=== PATIENT | male | born 2005 | race Caucasian/White ===

== ENCOUNTER 2024-05-14 23:06 | Emergency (ER) | payer OTHER, BC ==
[~2024-05-14] VITALS: Ht 193 cm; Wt 140.0 kg
[2024-05-14] MEDS ORDERED: SILVER SULFADIAZINE 400 GM HOME.PACK TOP ONE (23:45)
[2024-05-15] MEDS ORDERED: SILVER SULFADIAZINE 400 GM HOME.PACK TOP ONE (00:30)
[2024-05-15 00:51] VITALS: BP 161/86
== END 2024-05-15 00:53 | disposition home or self-care (01) ==
LOC: ED 23:06
DX: T54.3X1A Toxic effect of corrosive alkalis and alkali-like substances, accidental (unintentional), initial encounter (principal); T24.491A Corrosion of unspecified degree of multiple sites of right lower limb, except ankle and foot, initial encounter; T24.492A Corrosion of unspecified degree of multiple sites of left lower limb, except ankle and foot, initial encounter; Y99.0 Civilian activity done for income or pay
CPT/HCPCS: 99282